=== PATIENT | male | born 1950 | race Caucasian/White ===

== ENCOUNTER → 2020-02-16 | Outpatient (CLI) | payer MEDICARE, BC ==
--- NOTE | 2020-02-16 17:03 | KCIC ---
EXAM: Bilateral hand and wrist DATE: 02/16/2020 12:00 AM INDICATIONS: Reason: POLYARTHRALGIA / Spl. Instructions: / History: COMPARISON: No prior FINDINGS: PA, oblique and lateral views of the hand and wrist bilaterally show normal symmetric bone density. Central erosions with joint space narrowing centered at the DIP joints of the digits bilaterally consistent with erosive osteoarthritis. No definite proximal erosive change identified. 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 Negative periarticular soft tissue calcifications or chondrocalcinosis. Negative focal soft tissue swelling. IMPRESSION: 1. Changes of erosive osteoarthritis bilaterally. 2. Thumb CMC joint osteoarthritis. Electronically signed by: Jamie Khalil MD (02/16/2020 5:00 PM) [id number]
== END ==
LOC: KCIC 15:21
PROVIDERS: ATTEND Internal Medicine Rheumatology
DX: M19.042 Primary osteoarthritis, left hand (principal); M19.041 Primary osteoarthritis, right hand
CPT/HCPCS: 73130